=== PATIENT | male | born 1975 | race Caucasian/White ===

== ENCOUNTER 2017-02-10 08:17 | Emergency (ER) | payer OTHER ==
[~2017-02-10] VITALS: Ht 180.3 cm; Wt 117.3 kg
[2017-02-10 08:21] VITALS: BP 112/80; PULSE 88; RESP 16; O2SAT 93
--- NOTE | 2017-02-10 08:54 | ED.REPORT ---
HPI-Chest Pain 40 and Over Date of Service Feb 10, 2017 ED Provider: Virgil Moffett MD Patient is a 41 year old male who presents to the ER complaining of intermittent chest pain onset six days ago. He reports that the pain lasts about a minute and then resolves. Pain is described as similar to "a arm" and radiates into both arms. Patient was seen at the [facility] four days ago for similar where he had a full cardiac workup, diagnosed with noncardiac chest pain and sent home with ranitidine and scripts for azithromycin and ASA. Associated symptoms include lightheadedness, dizziness, inability to concentrate , tingling and numbness in his fingers, nausea, vomiting, and diarrhea. Patient states that he has had 55 episodes of diarrhea over the past four days. The patient denies cough, fever, sore throat, rhinorrhea, shortness of breath, hematochezia, and hematemesis. He reports that no one else in the household in sick. While at the clinic in [place], the patient was prescribed a Z-pack. Nursing Notes Stated Complaint: VOMITING, CHEST PAIN Chief Complaint: Chest Pain Nursing Notes Reviewed: Yes Allergies: Coded Allergies: No Known Allergies (Unverified , 02/10/17) Scheduled Azithromycin (Zithromax (Z-Jalil)) 250 Mg Tablet 250 MG PO DIRECTED Take two tablets by mouth on day 1, then take one tablet daily on days 2 through 5. Omeprazole (Omeprazole) 40 Mg Capsule.dr 40 MG PO DAILY Ranitidine (Ranitidine) 150 Mg Capsule 150 MG PO BID Scheduled PRN Ondansetron ODT (Zofran ODT) 4 Mg Tablet 4 MG PO Q4H PRN PRN For Nausea General Time Seen by MD: 08:43 Chief Complaint Chest pain Hx Obtained From: Patient Arrived By: Walk-in Sudden in Onset?: No Onset Occurred: 6 days ago Symptom Duration: Intermittent Location: : Substernal Quality: Painful Radiation: : Arm left: Arm right Severity: Current: No pain currently Severity: Maximum: Moderate Recent Healthcare: No recent doctor visit, No recent hospitalization Similar Sx Previous: No Past Medical History Past Medical History Reports: Asthma Past Surgical History testicular surgery hernia Social History Other Social History: Good social support Ambulatory Status Independent Review of Systems Constitutional: Denies: Fever Respiratory: Reports: Shortness of breath, Denies: Non-productive cough Cardiovascular: Reports: Chest pain GI: Reports: Diarrhea, Nausea, Vomiting, Denies: Hematemesis, Hematochezia Neurologic: Reports: Dizziness, Lightheaded, Numbness (in fingers) Complete sys rev & neg: except as marked. Physical Exam Initial Vital Signs Vital Signs (First) Date Time Temp Pulse Resp B/P Pulse Ox O2 Delivery O2 Flow Rate FiO2 02/10/17 08:21 36.5 88 16 112/80 93 Room Air Initial VS: Reviewed General/Constitutional: Awake, Alert, No acute distress Respiratory / Chest: Atraumatic, Breath sounds NL, Breath sounds = bilat, No respiratory distress Cardiovascular: Heart rate NL, Regular rhythm, Heart sounds NL, No murmurs Abdomen: No guarding, No rebound mild diffuse abdominal tenderness Neck: Supple Skin: Atraumatic, Color NL, No rash, Warm, Dry Neurologic: Oriented X3, Speech NL, No motor deficits, No sensory deficits Head / Eyes: Normocephalic, PERRL, EOMI ENT: Airway patent, Mucous membranes moist Interpretation & Diagnostics Lab Results Interpretation Result Diagram: 02/10/17 0840 02/10/17 0840 Test 02/10/17 08:40 02/10/17 09:35 White Blood Count 7.5th/mm3 (3.8-10.1) Red Blood Count 5.06mil/mm3 (4.40-5.80) Hemoglobin 16.0g/dL (13.8-17.2) Hematocrit 47.0% (41.0-50.0) Mean Corpuscular Volume 92.9fL (81-100) Mean Corpuscular Hemoglobin 31.6pg (27.0-35.0) Mean Corpuscular Hemoglobin Concent 34.0% (32.0-37.0) Red Cell Distribution Width 12.2% (12.3-15.4) Platelet Count 225bil/L (150-400) Neutrophils (%) (Auto) 53.1% (40-74) Lymphocytes (%) (Auto) 33.2% (14-46) Monocytes (%) (Auto) 10.3% (4-12) Eosinophils (%) (Auto) 2.8% (0-5) Basophils (%) (Auto) 0.5% (0-3) Sodium Level 137mEq/L (134-144) Potassium Level 4.4mEq/L (3.5-5.2) Chloride Level 104mEq/L (97-108) Carbon Dioxide Level 20mmol/L (18-29) Blood Urea Nitrogen 17mg/dL (6-24) Creatinine 0.82mg/dL (0.76-1.27) Estimat Glomerular Filtration Rate 111mL/min (>59) Glucose Level 100mg/dL (60-99) Calcium Level 9.4mg/dL (8.5-10.1) Magnesium Level 2.0mg/dL (1.6-2.6) Total Bilirubin 0.5mg/dL (0.0-1.2) Aspartate Amino Transf (AST/SGOT) 73U/L (0-50) Alanine Aminotransferase (ALT/SGPT) 117U/L (0-44) Alkaline Phosphatase 72U/L (25-150) Troponin T 0.010ug/L (0.0-0.011) Total Protein 8.1g/dL (6.4-8.4) Albumin 4.3g/dL (3.4-5.0) Hold Urine Received (Received) ECG Interpretation ECG Interpretation: No ST changes Time: 08:31 Interpreted by: ED physician Normal ECG Interpretation: Normal rate (81), Normal sinus rhythm X-Ray Chest Interpretation Chest Xray Interpretation: IMPRESSION: Negative chest. No acute cardiopulmonary process is suspected. Dictated by: Jorge Chaparro M.D. on 02/10/2017 at 8:28 Approved by: Jorge Chaparro M.D. on 02/10/2017 at 8:34 View: Portable, 1 view Interpretation / Wet Read by: Interpret - Radiologist Re-Eval/Medical Decision Med Decision/Clinical Course 41-year-old male nausea vomiting diarrhea times several days. Also with some vague chest pain over the last week exertional. No associated symptoms. Vital signs stable. His exam is reassuring. His labs are unremarkable. Troponins are negative. Chest x-ray is clear. He is unable to stool was here. Likely viral gastroenteritis. I did send him home with stool specimen collection to return the sample for PCR testing. Patient felt much better after hydration and requests to go home. Return precautions given. Follow-up primary doctor in 1-2 days. Source of Hx: Old records Time of Eval: 09:39 Re-Evaluation/Progress Note: Updated patient on the plan of care. Time of Eval: 10:10 Patient Status: Condition improved Re-Evaluation/Progress Note: Rechecked patient. Discussed plans for treatment and discharge. Patient understands and agrees to the plan for discharge. All questions were addressed. Counseled Regarding: Diagnosis, Lab results, Need for follow-up, When/why to return to ED Discharge & Departure Primary Impression: Gastroenteritis Additional Impression: GERD (gastroesophageal reflux disease) Disposition: Home Discharge Condition All VS Reviewed: Yes Condition: Stable Patient Instructions: Gastroenteritis (ED), Gastroesophageal Reflux Disease (ED ) Additional Instructions: You appear to have a viral infection causing your vomiting and diarrhea. Your labs are ok. Recommend you bring stool samples back to check for bacteria. Your chest X-ray looks normal, you don't have pneumonia and you didn't have a heart attack. Take Zofran as prescribed for nausea. You can also take Pepto-Bismol for diarrhea but it can delay the relief of the virus. Tums can also be used for acid reflux. If you would like to return a stool sample, you will be given a blue hat upon discharge. Follow up with your primary care physician this week. Please return to the emergency department if you develop any new or worsening symptoms. Scribe Attestation Portions of this note were transcribed by Nano Morse and Oniel Rodriguez. I, Dr. Moffett personally performed the history, physical exam and medical decision-making; I reviewed and confirmed the accuracy of the information in the transcribed note. Signed by: Nano Rodriguez, Dav, and 10:26 Virgil Moffett MD Feb 10, 2017 08:54 Alteha Morse Feb 10, 2017 09:07 ONIEL RODRIGUEZ Feb 10, 2017 10:01
[2017-02-10 09:02] LABS: BASOPHILS % (AUTO) 0.5 % (0-3); EOSINOPHILS % (AUTO) 2.8 % (0-5); MONOCYTES % (AUTO) 10.3 % (4-12); Mean Corpuscular Hemoglobin 31.6 pg (27.0-35.0); Mean Corpuscular Volume 92.9 fL (81-100); NEUTROPHILS % (AUTO) 53.1 % (40-74); Platelet Count 225 bil/L (150-400)
[2017-02-10] MEDS ORDERED: RANI150C4 PO (09:04)
[2017-02-10 09:05] VITALS: BP 113/77; PULSE 79; RESP 14; O2SAT 95
[2017-02-10] MEDS ORDERED: AZIT250T4 PO (09:05)
[2017-02-10 09:16] LABS: TROPONIN T 0.01 ug/L (0.0-0.011)
[2017-02-10] MEDS ORDERED: 0.9% Sodium Chloride 1,000 ML IV ONE (09:17)
[2017-02-10] MEDS ORDERED: Ondansetron 2 mg/mL 2 mL Inj IVPUSH PRN (09:20)
--- NOTE | 2017-02-10 09:36 | DRSVH ---
PROCEDURE: X-RAY CHEST ONE VIEW, PORTABLE ([id number]) INDICATIONS: chest pain TECHNIQUE: One view of the chest was acquired. COMPARISON: None. FINDINGS: Surgical changes and devices: None. Lungs and pleura: No pleural effusions or pneumothorax. Lungs are clear. Mediastinum: Mediastinal contours appear normal. Heart size is normal. Bones and chest wall: No suspicious bony lesions. Overlying soft tissues appear unremarkable. IMPRESSION: Negative chest. No acute cardiopulmonary process is suspected. Dictated by: Jorge Chaparro M.D. on 02/10/2017 at 8:28 Approved by: Jorge Chaparro M.D. on 02/10/2017 at 8:34
[2017-02-10] MEDS ORDERED: OMEP40CA36 PO (10:16)
[2017-02-10] MEDS ORDERED: ONDA4TAB9 PO (10:16)
[2017-02-10 10:52] VITALS: BP 129/87; PULSE 74; RESP 14; O2SAT 96
[2017-02-10 11:13] VITALS: BP 129/87; PULSE 74; RESP 14; O2SAT 96
== END 2017-02-10 10:17 | disposition home or self-care (01) ==
LOC: SED 08:17
DX: K52.9 Noninfective gastroenteritis and colitis, unspecified (principal); K21.9 Gastro-esophageal reflux disease without esophagitis; R42 Dizziness and giddiness; R20.0 Anesthesia of skin; R20.2 Paresthesia of skin; J45.909 Unspecified asthma, uncomplicated
CPT/HCPCS: 71010; 80053; 83735; 84484; 85025; 93005; 96361; 96374; 99285; J2405; J7030